=== PATIENT | male | born 1945 | race Caucasian/White ===

== ENCOUNTER 2020-02-18 09:51 | Emergency (ER) | payer OTHER ==
[~2020-02-18] VITALS: Ht 167.6 cm; Wt 78.5 kg
[~2020-02-18 09:51] MED LIST: ASPI81EC; BP PILL; HYDMOR2 PO; IBUP600 PO; OXYACE5T PO; RXHYDMOR2 PO
[2020-02-18 10:21] LABS: BASOPHILS ABSOLUTE AUTO 0.05 K/mm3 (0.00-0.23); BASOPHILS PERCENT AUTO 1 % (0-2); EOSINOPHILS ABSOLUTE AUTO 0.37 K/mm3 (0.00-0.68); EOSINOPHILS PERCENT AUTO 7 % (0-6); IMMATURE GRAN ABSOLUTE AUTO 0.02 K/mm3 (0.00-0.10); IMMATURE GRAN PERCENT AUTO 0 % (0-1); LYMPHOCYTES ABSOLUTE AUTO 1.55 K/mm3 (0.84-5.20); LYMPHOCYTES PERCENT AUTO 29 % (21-46); MONOCYTES ABSOLUTE AUTO 0.47 K/mm3 (0.16-1.47); MONOCYTES PERCENT AUTO 9 % (4-13); Mean Corpuscular HGB Conc 32.6 g/dL (31.5-36.5); Mean Corpuscular Volume 92 fL (80-100); Mean Platelet Volume 9.1 fL (9.1-12.4); NEUTROPHILS ABSOLUTE AUTO 2.86 K/mm3 (1.96-9.15); NEUTROPHILS PERCENT AUTO 54 % (41-73); Platelet Count 234 K/mm3 (150-400); RDW Standard Deviation 40.9 fL (35.1-46.3); White Blood Cell Count 5.32 K/mm3 (4.00-11.30)
[2020-02-18 10:42] LABS: Alanine Aminotransfer (ALT/SGP 27 U/L (12-78); Albumin, Blood 3.8 g/dL (3.4-5.0); Alk Phos 99 U/L (50-136); Anion Gap 6 mmol/L (6-16); Aspartate Aminotrans (AST/SGOT 22 U/L (12-37); Bilirubin, Total 0.5 mg/dL (0.1-1.0); Blood Urea Nitrogen 19 mg/dL (8-24); Bun/Creatinine Ratio 24.1 (12.0-20.0); CO2, Blood 23 mmol/L (21-32); Calcium, Blood 8.7 mg/dL (8.5-10.1); Chloride, Blood 111 mmol/L (98-108); Creatinine, Blood 0.79 mg/dL (0.60-1.20); Globulin, Blood 3.7 g/dL (2.2-4.0); Glomerular Filtration Rate >60 (60-); Glucose, Blood 145 mg/dL (70-99); Potassium, Blood 3.9 mmol/L (3.5-5.5); Sodium, Blood 140 mmol/L (136-145); Total Protein, Blood 7.5 g/dL (6.4-8.2); Troponin I <0.015 ng/mL (0.000-0.040)
[2020-02-18 12:25] LABS: Free Thyroxine 1.03 ng/dL (0.70-1.60); Thyroid Stimulating Hormone 1.42 uIU/mL (0.360-4.800)
[2020-02-18] MEDS ORDERED: Klor-Con 1010 MEQ PO (12:54)
== END 2020-02-18 13:15 | disposition home or self-care (01) ==
LOC: ER 09:51
PROVIDERS: Emergency Medicine
DX: I49.3 Ventricular premature depolarization (principal); I10 Essential (primary) hypertension; E78.00 Pure hypercholesterolemia, unspecified; Z79.82 Long term (current) use of aspirin
CPT/HCPCS: 36415; 71046; 80053; 83735; 84439; 84443; 84484; 85025; 93005; 93010; 99285-25

== ENCOUNTER 2024-03-05 08:36 | Day surgery (SDC) | payer OTHER ==
[~2024-03-05] VITALS: Ht 165.1 cm; Wt 78.8 kg
[~2024-03-05 08:36] MED LIST changes: +Klor-Con 1010 MEQ PO; +Lactated Ringer's 1,000 ML IV ONE; +propofoL 50 ML IV ONE
[2024-03-05] MEDS ORDERED: NS 50 ML IV ONE (09:08)
[2024-03-05] MEDS ORDERED: CeFAZolin Sodium 2,000 MG VIAL ONE (09:08)
[2024-03-05] MEDS ORDERED: Lactated Ringer's 1,000 ML IV ONE (09:20)
[2024-03-05] MEDS ORDERED: ATOR20 PO (09:23)
[2024-03-05] MEDS ORDERED: AMLO10 PO (09:23)
[2024-03-05] MEDS ORDERED: HYDCHL12.5 PO (09:24)
[2024-03-05] MEDS ORDERED: THERA-D2000 UNIT PO (09:24)
[2024-03-05] MEDS ORDERED: MULTIA DAILY M1 EACH PO (09:25)
[2024-03-05] MEDS ORDERED: ARTIFICIAL TEA1 EAC1 (09:25)
[2024-03-05] MEDS ORDERED: Ondansetron HCl 2 MG / ML 2ML Vial ONE (10:03)
[2024-03-05] MEDS ORDERED: Dexamethasone Sod Phos 10 MG/ML 1ML VIAL ONE (10:03)
[2024-03-05] MEDS ORDERED: Ketorolac Tromethamine 30mg Vial ONE (10:04)
[2024-03-05] MEDS ORDERED: FentaNYL Citrate 50 MCG/ML 2 ML Injection ONE (10:04)
[2024-03-05] MEDS ORDERED: Phenylephrine HCl 100 MCG/ML-NS 10MLSYR (1MG/10ML) ONE (10:25)
[2024-03-05] MEDS ORDERED: Glycopyrrolate 0.2 MG/ML 5ML VIAL ONE (10:25)
--- NOTE | 2024-03-05 12:43 | NUR ---
03[facility]05/24 [facility] THIS RN RECEIVED REPORT FROM KAJAL NELSON. PER OMARRN PATIENT TO STAY ON RHYTHM STRIP MONITOR UNTIL [address] ALVARENGA BECAUSE OF POSSIBLE ABNORMALITIES SEEN IN PACU. 1210: PATIENT HAS REMAINED ON RHYTHM STRIP MONITOR WITHOUT ABNORMALITIES AND DENIES CHEST PAIN, SOB, OR ANY OTHER SYMPTOMS. PER DR ALVARENGA PATIENT OK TO DISCHARGE. PATIENT REPORTS NO PAIN WITH R HAND OR NAUSEA. PATIENT EXPRESSES READINESS TO GO HOME.
[2024-03-05 16:00] VITALS: BP 126/75
--- NOTE | 2024-03-05 16:07 | NUR ---
03/05/24 1607 Fred Pisano POSSIBLE ABNORMAL RHYTHM WAS NOTED ON PT'S ECG IN PACU (SEE RHYTHM STRIP). PT'S WAS FREQUENTLY MOVING AND LEADS WERE FREQUENTLY CAME OFF DURING STAY IN PACU CREATING PERIODS OF ARTIFACT. PT DENIED CP, SOB, NAUSEA, WEAKNESS, NIETO, AND OTHER CARDIAC SYMPTOMS. NON WERE OBSERVED. DR. ALVARENGA NOTIFIED AT 1135. SHE ORDERED PT CONTINUE TO BE MONITORED USING 3-LEAD ECG FOR 30 MINUTE. PT WAS LEFT ON 3 LEAD UNTIL 1210. NO FURTHER ABNORMAL RHYTHM WAS NOTED BY THIS RN.
== END 2024-03-05 12:41 | disposition home or self-care (01) ==
LOC: ORSCSDS 08:36
DX: G56.01 Carpal tunnel syndrome, right upper limb (principal); S60.551A Superficial foreign body of right hand, initial encounter; M19.041 Primary osteoarthritis, right hand; E78.5 Hyperlipidemia, unspecified; I10 Essential (primary) hypertension; J45.909 Unspecified asthma, uncomplicated; Z79.899 Other long term (current) drug therapy; Z87.891 Personal history of nicotine dependence
CPT/HCPCS: J0690; J1100; J1885; J2371; J2405; J2704; J3010; J7120